=== PATIENT | female | born 1965 | race Hispanic/Latino ===

== ENCOUNTER 2024-12-05 11:15 | Emergency (ER) | payer BC, OTHER ==
[~2024-12-05] VITALS: Ht 149.9 cm; Wt 73.0 kg
[~2024-12-05 11:15] MED LIST: CARAFATE1 GM/10 ML PO; KLONOPIN0.5 MG PO; PANTOPRAZOLE SO40 MG PO; REGLAN10 MG PO
[2024-12-05 11:37] VITALS: PULSE 62; RESP 18; TEMP 98.1; O2SAT 99
== END 2024-12-05 12:05 | disposition home or self-care (01) ==
LOC: ER 11:47
DX: M79.642 Pain in left hand (principal); T80.89XA Other complications following infusion, transfusion and therapeutic injection, initial encounter
CPT/HCPCS: 99282